=== PATIENT | female | born 1995 | race Caucasian/White ===

== ENCOUNTER 2020-04-25 07:37 | Emergency (ER) | payer OTHER ==
[2020-04-25 08:30] LABS: ALT (SGPT) 16 U/L (8-55); AST (SGOT) 18 U/L (5-34); Albumin 4.4 g/dL (3.5-5.0); Alkaline Phosphatase 75 U/L (40-110); Anion Gap 13 mmol/L (10-20); BUN (Urea Nitrogen) 9 mg/dL (7.0-18.7); Bilirubin, Total 0.3 mg/dL (0.2-1.2); Calc. Creatinine Clearance 0 mL/min (70-130); Calcium 9.3 mg/dL (7.8-10.44); Carbon Dioxide 25 mmol/L (22-29); Chloride 101 mmol/L (98-107); Estimated GFR-MDRD Greater than 90; Globulin 3.6 g/dL (2.4-3.5); Glucose 93 mg/dL (70-105); Sodium 135 mmol/L (136-145)
[2020-04-25 08:35] LABS: #Eosinphils 0.1 thou/uL (0.0-0.7); #Lymphocytes 1.2 thou/uL (1.20-3.40); #Monocytes 0.7 thou/uL (0.11-0.59); #Neutrophils 3.1 thou/uL (1.40-6.50); %Basophils 0.9 % (0.0-1.0); %Eosinophils 1.9 % (0.0-10.0); %Lymphocytes 22.9 % (21.0-51.0); %Monocytes 14.2 % (0.0-10.0); %Neutrophils 60.1 % (42.0-75.0); Hemoglobin 11.4 g/dL (12.0-16.0); Mean Corpuscular HGB CONC 30.8 g/dL (32.0-36.0); Mean Platelet Volume 13.4 fL (7.4-10.4); Platelet Count 165 thou/uL (130-400); RBC Distribution Width 13.3 % (11.5-14.5); Red Blood Cell (RBC) Count 4.74 mill/uL (4.20-5.40); White Blood Cell (WBC) Count 5.2 thou/uL (4.8-10.8)
--- NOTE | 2020-04-25 08:37 | RAD ---
EXAM: CHEST ONE VIEW HISTORY: Chest pain. Accompanying upper back pain and congestion. Headache. COMPARISON: None FINDINGS: The cardiac silhouette and pulmonary vasculature are within normal limits. The lungs are clear. The o sseous structures are intact. IMPRESSION: No acute cardiopulmonary process.
[2020-04-25] MEDS ORDERED: Dexamethasone 20 MG/5 ML VIAL ONE (09:11)
[2020-04-25] MEDS ORDERED: Ketorolac Tromethamine 30 MG/ML VIAL ONE (09:11)
[2020-04-25 17:59] LABS: SARS-CoV-2 MS2 Positive; SARS-CoV-2 N Gene Negative; SARS-CoV-2 S Gene Negative; SARS-CoV-2 by NAA Not Detected (NotDetected); SARS-CoV-2 orf1ab Negative
== END 2020-04-25 09:37 | disposition home or self-care (01) ==
LOC: NAV ERS 07:37
DX: R07.9 Chest pain, unspecified (principal); M79.10 Myalgia, unspecified site; Z20.828 Contact with and (suspected) exposure to other viral communicable diseases
CPT/HCPCS: 71045; 80053; 85025; 87635; 93005; 96374; 96375; J1100; J1885; U0003

== ENCOUNTER 2021-05-10 01:56 | Emergency (ER) | payer OTHER ==
[2021-05-10] MEDS ORDERED: AMOXicillin 250 MG CAP ONE (02:32)
[2021-05-10] MEDS ORDERED: Ibuprofen 800 MG TAB ONE (02:32)
== END 2021-05-10 02:35 | disposition home or self-care (01) ==
LOC: NAV ERS 01:56
DX: K02.9 Dental caries, unspecified (principal)
CPT/HCPCS: 99282

== ENCOUNTER 2022-08-02 04:54 | Emergency (ER) | payer BC, OTHER ==
[2022-08-02] MEDS ORDERED: Dexamethasone 4 MG TAB ONE (05:42)
== END 2022-08-02 05:57 | disposition home or self-care (01) ==
LOC: NAV ERS 04:54
DX: J02.8 Acute pharyngitis due to other specified organisms (principal); J06.9 Acute upper respiratory infection, unspecified
CPT/HCPCS: 87081; 87430; 87804; 99283; J8540